=== PATIENT | male | born 1960 | race Caucasian/White ===

== ENCOUNTER 2016-07-22 11:35 | Emergency (ER) | payer BC ==
--- NOTE | 2016-07-22 15:03 | ED ---
Abdominal Pain/Male - HPI Summary HPI Summary: Patient presents for evaluation of lightheadedness with standing and preceding watery diarrhea for the last 3 days. Also has associated dark urine and dry mouth. Both he and had the non bloody, non mucoid diarrhea after arriving home from [place]. They both felt well when arriving home, but soon afterwards began having watery diarrhea. It has nearly resolved today with small, nearly formed stools. Denies new or bad foods, recent antibiotic therapy, chest pain, dyspnea. - History of Current Complaint Chief Complaint: EDDizziness Stated Complaint: HEADACHE/DIZZY/NAUSEA Time Seen by Provider: 07/22/16 14:16 Hx Obtained From: Patient, Family/Voice Network Administrator - Onset/Duration: Gradual Onset, Lasting Days Severity Initially: Mild Severity Currently: Moderate Pain Intensity: 5 - Allergies/Home Medications Allergies/Adverse Reactions: Allergies Allergy/AdvReac Type Severity Reaction Status Date / Time No Known Allergies Allergy Verified 07/22/16 11:39 PMH/Surg Hx/FS Hx/Imm Hx Previously Healthy: Yes Endocrine/Hematology History: Denies: Hx Diabetes Cardiovascular History: Denies: Hx Hypertension, Hx Pacemaker/ICD Respiratory History: Reports: Hx Pneumonia GI History: Reports: Hx Gastroesophageal Reflux Disease History: Denies: Hx Renal Disease Sensory History: Denies: Hx Hearing Aid Neurological History: Reports: Other Neuro Impairments/Disorders - vertigo Psychiatric History: Denies: Hx Panic Disorder - Surgical History Surgery Procedure, Year, and Place: 3 HERNIA -1989,1994, AND 2004. APPENDECTOMY - 1974 Infectious Disease History: No Infectious Disease History: Denies: Traveled Outside the [place] in Last 30 Days - Family History Known Family History: Positive: Cardiac Disease - [place]: father - Social History Alcohol Use: Rare Substance Use Type: Reports: None Hx Tobacco Use: No Smoking Status (MU): Never Smoked Tobacco Review of Systems Negative: Fever, Chills Cardiovascular: Negative Negative: Palpitations, Chest Pain Respiratory: Negative Negative: Shortness Of Breath Positive: Diarrhea. Negative: Abdominal Pain, Vomiting, Nausea All Other Systems Reviewed And Are Negative: Yes Physical Exam Triage Information Reviewed: Yes Vital Signs On Initial Exam: Initial Vitals Temp Pulse Resp BP Pulse Ox 98.8 F 83 16 129/74 98 07/22/16 11:39 07/22/16 11:39 07/22/16 11:39 07/22/16 11:39 07/22/16 11:39 Vital Signs Reviewed: Yes Appearance: Positive: Well-Appearing, No Pain Distress, Well-Nourished Skin: Positive: Warm, Skin Color Reflects Adequate Perfusion, Dry ENT: Positive: Normal ENT inspection, Hearing grossly normal Respiratory/Lung Sounds: Positive: Clear to Auscultation, Breath Sounds Present Cardiovascular: Positive: Normal, RRR, Pulses are Symmetrical in both Upper and Lower Extremities Abdomen Description: Positive: Nontender, No Organomegaly, Soft. Negative: CVA Tenderness (R), CVA Tenderness (L), Distended, Guarding, Hepatomegaly, McBurney' s Point Tenderness, Peritoneal Signs, Pulsatile Mass, Splenomegaly Musculoskeletal: Positive: Normal, Strength/ROM Intact Neurological: Positive: Normal, Sensory/Motor Intact, Alert, Oriented to Person Place, Time, CN Intact II-III, Reflexes Intact, NV Bundle Intact Distally, Normal Gait. Negative: Cerebellar Dysfunction Diagnostics - Vital Signs Vital Signs Temp Pulse Resp BP Pulse Ox 07/22/16 12:50 97.8 F 75 16 131/57 99 07/22/16 11:39 98.8 F 83 16 129/74 98 - Laboratory Result Diagrams: 07/22/16 16:00 07/22/16 16:00 Lab Statement: Any lab studies that have been ordered have been reviewed, and results considered in the medical decision making process. Abdominal Pain Fem Course/Dx - Diagnoses Differential Diagnosis/HQI/PQRI: Other - Primary concern for near syncope from volume depletion. Well appearing, nontoxic with soft benign abdomen with sick contact with identical symptoms. IVF, lab evaluation for renal dysfunction. PCP FU. Provider Diagnoses: Dehydration Discharge - Discharge Plan Condition: Improved Disposition: HOME Patient Education Materials: Dehydration (ED) Referrals: Jc Quigley MD [Primary Care Provider] -
[2016-07-22 16:22] LABS: Hematocrit 42 % (42-52); Hemoglobin 13.8 g/dl (14.0-18.0); Mean Corpuscular HGB Conc 33 g/dl (31-36); Mean Corpuscular Hemoglobin 30 pg (27-31); Mean Corpuscular Volume 90 fL (80-94); Mean Platelet Volume 10 um3 (7.4-10.4); Red Blood Count 4.62 10^6/ul (4.0-5.4); Red Cell Distribution Width 15 % (10.5-15); White Blood Count 6.7 10^3/ul (3.5-10.8)
[2016-07-22 16:33] LABS: Albumin 4.4 g/dL (3.2-5.2); BUN/Creatinine Ratio 16.7 (8-20); Calcium 9.5 mg/dL (8.6-10.3); EGFR African American 132.4 (>60); Globulin 3.2 g/dL (2-4); Potassium 4.1 mmol/L (3.5-5.0); Total Bilirubin 0.4 mg/dL (0.2-1.0); Total Protein 7.6 g/dL (6.4-8.9)
[2016-07-22 17:34] VITALS: BP 112/66
== END 2016-07-22 17:34 | disposition home or self-care (01) ==
LOC: ED 11:35
DX: E86.0 Dehydration (principal); R42 Dizziness and giddiness; R19.7 Diarrhea, unspecified; R51 Headache; R11.0 Nausea
CPT/HCPCS: 36415; 80053; 83690; 85027; 99282

== ENCOUNTER 2016-11-04 11:07 | Emergency (ER) | payer BC ==
[2016-11-04] MEDS ORDERED: Meclizine TAB* 12.5 MG PO ONE (11:57)
[2016-11-04] MEDS ORDERED: NS 0.9% 1000 ML* 1,000 ML IV ONE (11:57)
[2016-11-04 12:32] LABS: Hematocrit 44 % (42-52); Hemoglobin 14.6 g/dl (14.0-18.0); Mean Corpuscular HGB Conc 33 g/dl (31-36); Mean Corpuscular Hemoglobin 30 pg (27-31); Mean Corpuscular Volume 91 fL (80-94); Mean Platelet Volume 10 um3 (7.4-10.4); Red Blood Count 4.91 10^6/ul (4.0-5.4); Red Cell Distribution Width 15 % (10.5-15); White Blood Count 5.5 10^3/ul (3.5-10.8)
[2016-11-04 12:48] LABS: Albumin 4.5 g/dL (3.2-5.2); C Reactive Protein 2.09 mg/L (< 5.00); Calcium 9.9 mg/dL (8.6-10.3); EGFR African American 128.6 (>60); Globulin 3.4 g/dL (2-4); Magnesium 2.2 mg/dL (1.9-2.7); Potassium 4.6 mmol/L (3.5-5.0); Total Bilirubin 0.3 mg/dL (0.2-1.0); Total Protein 7.9 g/dL (6.4-8.9)
[2016-11-04 13:04] VITALS: BP 110/70
[2016-11-04 13:13] LABS: TSH (Thyroid Stimulating Horm) 3.09 mcIU/mL (0.34-5.60)
[2016-11-04 13:41] LABS: Urine Bilirubin Negative (Negative); Urine Glucose Negative (Negative); Urine Nitrite Negative (Negative)
--- NOTE | 2016-11-04 18:28 | ED ---
Cecilio De Los Santos Billy, scribed for Mario Duran MD on 11/04/16 at 1157 . Dizziness - HPI Summary HPI Summary: Patient is a 56 year-old male coming to [facility] for evaluation of dizziness, which he has described as "vertigo" and "roomspinning." Symptoms worse with change in head position. He denies any recent URI symptoms such as cough, sore throat, earache, or rhinorrhea. Denies chest pain or shortness of breath. He states that his symptoms today feel similar to previous episodes of vertigo. - History Of Current Complaint Chief Complaint: EDGeneral Stated Complaint: DIZZY Time Seen by Provider: 11/04/16 11:53 Hx Obtained From: Patient Timing: Constant Severity Initially: Moderate Severity Currently: Moderate Character: Room Spinning Aggravating Factor(s): Change In Head Position Alleviating Factor(s): Rest Associated Signs And Symptoms: Negative: Nausea, Vomiting, Chest Pain, SOB, Fever, Chills - Allergies/Home Medications Allergies/Adverse Reactions: Allergies Allergy/AdvReac Type Severity Reaction Status Date / Time No Known Allergies Allergy Verified 07/22/16 11:39 PMH/Surg Hx/FS Hx/Imm Hx Endocrine/Hematology History: Denies: Hx Diabetes Cardiovascular History: Denies: Hx Hypertension, Hx Pacemaker/ICD Respiratory History: Reports: Hx Pneumonia GI History: Reports: Hx Gastroesophageal Reflux Disease History: Denies: Hx Renal Disease Sensory History: Denies: Hx Hearing Aid EENT History: Reports: Other - vertigo Neurological History: Reports: Other Neuro Impairments/Disorders - vertigo Psychiatric History: Denies: Hx Panic Disorder - Surgical History Surgery Procedure, Year, and Place: 3 HERNIA -1989,1994, AND 2004. APPENDECTOMY - 1974 Infectious Disease History: Denies: Traveled Outside the US in Last 30 Days - Family History Known Family History: Positive: Cardiac Disease - [place]: father, Diabetes - Social History Alcohol Use: Rare Substance Use Type: Reports: None Hx Tobacco Use: No Smoking Status (MU): Never Smoked Tobacco Review of Systems Negative: Sore Throat, Ear Ache, Nasal Discharge Negative: Chest Pain Negative: Shortness Of Breath Neurological: Other - "vertigo" All Other Systems Reviewed And Are Negative: Yes Physical Exam - Summary Physical Exam Summary: VITAL SIGNS: Reviewed. GENERAL: Patient is a well-developed and nourished male who is lying comfortable in the stretcher. Patient is not in any acute respiratory distress. HEAD AND FACE: No signs of trauma. No ecchymosis, hematomas or skull depressions. No sinus tenderness. EYES: PERRLA, EOMI x 2, No injected conjunctiva, no nystagmus. No photophobia. EARS: Hearing grossly intact. Ear canals and tympanic membranes are within normal limits. MOUTH: Oropharynx within normal limits. NECK: Supple, trachea is midline, no adenopathy, no JVD, no carotid bruit, no c- spine tenderness, neck with full ROM. No meningeal signs, no Kernig's or brudzinskis signs. CHEST: Symmetric, no tenderness at palpation LUNGS: Clear to auscultation bilaterally. No wheezing or crackles. CVS: Regular rate and rhythm, S1 and S2 present, no murmurs or gallops appreciated. ABDOMEN: Soft, non-tender. No signs of distention. No rebound no guarding, and no masses palpated. Bowel sounds are normal. EXTREMITIES: FROM in all major joints, no edema, no cyanosis or clubbing. NEURO: Alert and oriented x 3. No acute neurological deficits. Speech is normal and follows commands. SKIN: Dry and warm Triage Information Reviewed: Yes Vital Signs On Initial Exam: Initial Vitals Temp Pulse Resp BP Pulse Ox 98.7 F 68 18 123/78 100 11/04/16 11:12 11/04/16 11:12 11/04/16 11:12 11/04/16 11:12 11/04/16 11:12 Vital Signs Reviewed: Yes Diagnostics - Vital Signs Vital Signs Temp Pulse Resp BP Pulse Ox 11/04/16 11:12 98.7 F 68 18 123/78 100 - Laboratory Lab Results: Lab Results 11/04/16 11/04/16 11/04/16 Range/Units 12:15 12:15 12:15 WBC 5.5 (3.5-10.8) 10^3/ul RBC 4.91 (4.0-5.4) 10^6/ul Hgb 14.6 (14.0-18.0) g/dl Hct 44 (42-52) % MCV 91 (80-94) fL MCH 30 (27-31) pg MCHC 33 (31-36) g/dl RDW 15 (10.5-15) % Plt Count 215 (150-450) 10^3/ul MPV 10 (7.4-10.4) um3 Neut % (Auto) 69.4 (38-83) % Lymph % (Auto) 21.9 L (25-47) % [place] % (Auto) 6.2 (1-9) % Eos % (Auto) 1.4 (0-6) % Baso % (Auto) 1.1 (0-2) % Absolute Neuts (auto) 3.8 (1.5-7.7) 10^3/ul Absolute Lymphs (auto) 1.2 (1.0-4.8) 10^3/ul Absolute Monos (auto) 0.3 (0-0.8) 10^3/ul Absolute Eos (auto) 0.1 (0-0.6) 10^3/ul Absolute Basos (auto) 0.1 (0-0.2) 10^3/ul Absolute Nucleated RBC 0 10^3/ul Nucleated RBC % 0 Sodium 137 (133-145) mmol/L Potassium 4.6 (3.5-5.0) mmol/L Chloride 101 (101-111) mmol/L Carbon Dioxide 31 (22-32) mmol/L Anion Gap 5 (2-11) mmol/L BUN 12 (6-24) mg/dL Creatinine 0.80 (0.67-1.17) mg/dL Est GFR ( Amer) 128.6 (>60) Est GFR (Non-Af Amer) 100.0 (>60) BUN/Creatinine Ratio 15.0 (8-20) Glucose 96 (70-100) mg/dL Lactic Acid 1.6 (0.5-2.0) mmol/L Calcium 9.9 (8.6-10.3) mg/dL Magnesium 2.2 (1.9-2.7) mg/dL Total Bilirubin 0.30 (0.2-1.0) mg/dL AST 19 (13-39) U/L ALT 15 (7-52) U/L Alkaline Phosphatase 70 (34-104) U/L Troponin I 0.00 (<0.04) ng/mL C-Reactive Protein 2.09 (< 5.00) mg/L B-Natriuretic Peptide ( - 100) pg/mL Total Protein 7.9 (6.4-8.9) g/dL Albumin 4.5 (3.2-5.2) g/dL Globulin 3.4 (2-4) g/dL Albumin/Globulin Ratio 1.3 (1-3) TSH 3.09 (0.34-5.60) mcIU/mL Urine Color Urine Appearance Urine pH (5-9) Ur Specific [place] (1.010-1.030) Urine Protein (Negative) Urine Ketones (Negative) Urine Blood (Negative) Urine Nitrate (Negative) Urine Bilirubin (Negative) Urine Urobilinogen (Negative) Ur Leukocyte Esterase (Negative) Urine Glucose (Negative) 11/04/16 11/04/16 Range/Units 12:15 13:10 WBC (3.5-10.8) 10^3/ul RBC (4.0-5.4) 10^6/ul Hgb (14.0-18.0) g/dl Hct (42-52) % MCV (80-94) fL MCH (27-31) pg MCHC (31-36) g/dl RDW (10.5-15) % Plt Count (150-450) 10^3/ul MPV (7.4-10.4) um3 Neut % (Auto) (38-83) % Lymph % (Auto) (25-47) % [place] % (Auto) (1-9) % Eos % (Auto) (0-6) % Baso % (Auto) (0-2) % Absolute Neuts (auto) (1.5-7.7) 10^3/ul Absolute Lymphs (auto) (1.0-4.8) 10^3/ul Absolute Monos (auto) (0-0.8) 10^3/ul Absolute Eos (auto) (0-0.6) 10^3/ul Absolute Basos (auto) (0-0.2) 10^3/ul Absolute Nucleated RBC 10^3/ul Nucleated RBC % Sodium (133-145) mmol/L Potassium (3.5-5.0) mmol/L Chloride (101-111) mmol/L Carbon Dioxide (22-32) mmol/L Anion Gap (2-11) mmol/L BUN (6-24) mg/dL Creatinine (0.67-1.17) mg/dL Est GFR ( Amer) (>60) Est GFR (Non-Af Amer) (>60) BUN/Creatinine Ratio (8-20) Glucose (70-100) mg/dL Lactic Acid (0.5-2.0) mmol/L Calcium (8.6-10.3) mg/dL Magnesium (1.9-2.7) mg/dL Total Bilirubin (0.2-1.0) mg/dL AST (13-39) U/L ALT (7-52) U/L Alkaline Phosphatase (34-104) U/L Troponin I (<0.04) ng/mL C-Reactive Protein (< 5.00) mg/L B-Natriuretic Peptide 17 ( - 100) pg/mL Total Protein (6.4-8.9) g/dL Albumin (3.2-5.2) g/dL Globulin (2-4) g/dL Albumin/Globulin Ratio (1-3) TSH (0.34-5.60) mcIU/mL Urine Color Straw Urine Appearance Clear Urine pH 7.0 (5-9) Ur Specific [place] 1.004 L (1.010-1.030) Urine Protein Negative (Negative) Urine Ketones Negative (Negative) Urine Blood Negative (Negative) Urine Nitrate Negative (Negative) Urine Bilirubin Negative (Negative) Urine Urobilinogen Negative (Negative) Ur Leukocyte Esterase Negative (Negative) Urine Glucose Negative (Negative) Result Diagrams: 11/04/16 12:15 11/04/16 12:15 Lab Statement: Any lab studies that have been ordered have been reviewed, and results considered in the medical decision making process. - EKG 1430 EKG Interpretation: sinus bradycardia 56 bpm, no STEMI Re-Evaluation - Re-Evaluation First Eval Re-Evaluation Time: 14:42 Change: Improved Comment: Patient states that he feels well. All of his symptoms have resolved. Dizzy Course/Dx - Course Assessment/Plan: Patient is a 56 year-old male coming to [facility] for evaluation of dizziness, which he has described as "vertigo" and "roomspinning." Symptoms worse with change in head position. He denies any recent URI symptoms such as cough, sore throat, earache, or rhinorrhea. Denies chest pain or shortness of breath. He states that his symptoms today feel similar to previous episodes of vertigo. Test results WNL. UA is negative. In the ED course, the patient was given IV fluids and Antivert and his symptoms improved. He is ambulating with a good and steady gait. Therefore, I do not see the need of CT imaging of the brain. He will be discharged home to follow up with PCP. He will be given a prescription for Meclizine to be taken at home. I discussed all the findings and test results with the patient. Patient was instructed to return to the emergency room immediately if any of the symptoms return or worsens. Patient understands and agrees. Plan of care was discussed with the patient and patient understands and agrees with the plan of care. All questions were answered at patient satisfaction. There were no further complaints or concerns. Patient is alert and oriented x 3. Patient vital signs are stable. Patient is to follow up with primary care physician in the next 2 to 3 days. Patient understands and agrees. - Diagnoses Differential Diagnosis/HQI/PQRI: Meniere's Disease, Other - BPV, Provider Diagnoses: Vertigo Discharge - Discharge Plan Condition: Stable Disposition: HOME Prescriptions: Meclizine TAB* [Antivert 12.5 TAB*] 25 mg PO TID PRN #30 tab PRN Reason: Vertigo Patient Education Materials: Vertigo (ED) Referrals: Jc Quigley MD [Primary Care Provider] - The documentation as recorded by the Cecilio mackey Billy accurately reflects the service I personally performed and the decisions made by me, Mario Duran MD.
== END 2016-11-04 14:44 | disposition home or self-care (01) ==
LOC: ED 11:07
DX: R42 Dizziness and giddiness (principal)
CPT/HCPCS: 36415; 80053; 81003; 83605; 83735; 83880; 84443; 84484; 85025; 86140; 93005; 99283; A9270-GY

== ENCOUNTER 2017-07-16 10:19 | Emergency (ER) | payer BC ==
[2017-07-16 10:25] VITALS: BP 132/73
--- NOTE | 2017-07-18 08:29 | ED ---
Josef De Los Santos Thomas, scribed for Mario Duran MD on 07/16/17 at 1040 . Influenza-Like Illness - HPI Summary HPI Summary: The patient is a 57 year old male presenting with a cough, sore throat, nasal discharge, fever, body aches, and chills for the last two days. He had diarrhea two days ago. - History of Current Complaint Chief Complaint: EDGeneral Time Seen by Provider: 07/16/17 10:25 Hx Obtained From: Patient Onset/Duration: Still Present Severity: Moderate Associated Signs & Symptoms: Fever, Myalgia, Cough, Sore Throat, Nasal Congestion, Diarrhea Related Hx: Possible Flu/Infectious Exposure - Allergy/Home Medications Allergies/Adverse Reactions: Allergies Allergy/AdvReac Type Severity Reaction Status Date / Time No Known Allergies Allergy Verified 07/22/16 11:39 PMH/Surg Hx/FS Hx/Imm Hx Endocrine/Hematology History: Denies: Hx Diabetes Cardiovascular History: Denies: Hx Hypertension, Hx Pacemaker/ICD Respiratory History: Reports: Hx Pneumonia GI History: Reports: Hx Gastroesophageal Reflux Disease History: Denies: Hx Renal Disease Sensory History: Denies: Hx Hearing Aid Neurological History: Reports: Other Neuro Impairments/Disorders - vertigo Psychiatric History: Denies: Hx Panic Disorder - Surgical History Surgery Procedure, Year, and Place: 3 HERNIA -1989,1994, AND 2004. APPENDECTOMY - 1974 Infectious Disease History: No Infectious Disease History: Denies: Traveled Outside the [place] in Last 30 Days - Family History Known Family History: Positive: Cardiac Disease - [place]: father, Diabetes - Social History Alcohol Use: Rare Substance Use Type: Reports: None Hx Tobacco Use: No Smoking Status (MU): Never Smoked Tobacco Review of Systems Positive: Fever, Chills Positive: Sore Throat, Nasal Discharge Positive: Cough Positive: Myalgia All Other Systems Reviewed And Are Negative: Yes Physical Exam - Summary Physical Exam Summary: VITAL SIGNS: Reviewed. GENERAL: Patient is a well-developed and nourished male who is lying comfortable in the stretcher. Patient is not in any acute respiratory distress. HEAD AND FACE: No signs of trauma. No ecchymosis, hematomas or skull depressions. No sinus tenderness. EYES: PERRLA, EOMI x 2, No injected conjunctiva, no nystagmus. EARS: Hearing grossly intact. Ear canals and tympanic membranes are within normal limits. MOUTH: Oropharynx within normal limits. He has pharyngeal erythema. NOSE: He has nasal discharge. NECK: Supple, trachea is midline, no adenopathy, no JVD, no carotid bruit, no c- spine tenderness, neck with full ROM. CHEST: Symmetric, no tenderness at palpation LUNGS: Clear to auscultation bilaterally. No wheezing or crackles. CVS: Regular rate and rhythm, S1 and S2 present, no murmurs or gallops appreciated. ABDOMEN: Soft, non-tender. No signs of distention. No rebound no guarding, and no masses palpated. Bowel sounds are normal. EXTREMITIES: FROM in all major joints, no edema, no cyanosis or clubbing. NEURO: Alert and oriented x 3. No acute neurological deficits. Speech is normal and follows commands. SKIN: Dry and warm Triage Information Reviewed: Yes Vital Signs On Initial Exam: Initial Vitals Temp Pulse Resp BP Pulse Ox 97.8 F 85 19 132/73 97 07/16/17 10:21 07/16/17 10:21 07/16/17 10:21 07/16/17 10:21 07/16/17 10:21 Vital Signs Reviewed: Yes Diagnostics - Vital Signs Vital Signs Temp Pulse Resp BP Pulse Ox 07/16/17 10:21 97.8 F 85 19 132/73 97 - Laboratory Lab Statement: Any lab studies that have been ordered have been reviewed, and results considered in the medical decision making process. Flu Symptom Course/Dx - Course Assessment/Plan: The patient is a 57 year old male presenting with a cough, sore throat, nasal discharge, fever, body aches, and chills for the last two days. He had diarrhea two days ago. Rapid Strep, Influenza A and B are negative. The patient has a URI, most likely viral. I discharged the patient home with a script for Mucinex and follow up with primary care. - Diagnoses Provider Diagnoses: URI (upper respiratory infection) Discharge - Discharge Plan Condition: Stable Disposition: HOME Prescriptions: guaiFENesin ER TAB [Mucinex*] 600 mg PO BID #10 tab.er Patient Education Materials: Upper Respiratory Infection (ED) Forms: *Work Release Referrals: Jc Quigley MD [Primary Care Provider] - 3 Days Additional Instructions: Follow up with your primary care provider in three days. Return to the emergency department for any new or worsening symptoms. The documentation as recorded by the Josef mackey Thomas accurately reflects the service I personally performed and the decisions made by , Mario Duran MD.
== END 2017-07-16 11:56 | disposition home or self-care (01) ==
LOC: ED 10:19
DX: J06.9 Acute upper respiratory infection, unspecified (principal); K21.9 Gastro-esophageal reflux disease without esophagitis
CPT/HCPCS: 87502; 87651; 99282

== ENCOUNTER 2017-07-19 16:03 | Emergency (ER) | payer BC ==
[2017-07-19] MEDS ORDERED: Azithromycin TAB* 250 MG PO ONE (18:56)
[2017-07-19] MEDS ORDERED: predniSONE TAB* 20 MG PO ONE (18:57)
[2017-07-19] MEDS ORDERED: Benzonatate CAP* 100 MG PO ONE (18:57)
[2017-07-19] MEDS ORDERED: Albuterol HFA INHALER* 8 gm MDI INH ONE (18:58)
--- NOTE | 2017-07-19 19:05 | UC ---
Respiratory Complaint HPI - HPI Summary HPI Summary: 57 yo male ill x 1 week initially f/c URI symptoms see in ER flu (-) now cough in chest he is wheezing has had bronchitis in past an had to use MDI - History of Current Complaint Chief Complaint: UCGeneralIllness Stated Complaint: CHEST CONGESTION Time Seen by Provider: 07/19/17 18:37 Hx Obtained From: Patient Onset/Duration: Gradual Onset, Lasting Days Timing: Constant Severity Initially: Mild Severity Currently: Moderate Pain Intensity: 7 Pain Scale Used: 0-10 Numeric Aggravating Factors: Nothing Alleviating Factors: Nothing Associated Signs And Symptoms: Positive: Fever, Chills, Wheezing, Nasal Congestion, Sinus Discomfort - Allergies/Home Medications Allergies/Adverse Reactions: Allergies Allergy/AdvReac Type Severity Reaction Status Date / Time No Known Allergies Allergy Verified 07/19/17 16:35 PMH/Surg Hx/FS Hx/Imm Hx Previously Healthy: Yes Respiratory History: Bronchitis - Surgical History Surgical History: Yes Surgery Procedure, Year, and Place: 3 HERNIA -1989,1994, AND 2004. APPENDECTOMY - 1974 - Family History Known Family History: Positive: Cardiac Disease - [place]: father, Diabetes - Social History Alcohol Use: Rare Substance Use Type: None Smoking Status (MU): Never Smoked Tobacco Review of Systems Constitutional: Fever, Chills, Fatigue Skin: Negative Eyes: Negative ENT: Nasal Discharge, Sinus Congestion Respiratory: Cough Cardiovascular: Negative Gastrointestinal: Negative Genitourinary: Negative Motor: Negative Neurovascular: Negative Musculoskeletal: Myalgia Neurological: Negative Psychological: Negative Is Patient Immunocompromised?: No All Other Systems Reviewed And Are Negative: Yes Physical Exam Triage Information Reviewed: Yes Appearance: Well-Appearing, No Pain Distress, Well-Nourished Vital Signs: Initial Vital Signs Temp 98.0 F 07/19/17 16:31 Pulse 69 07/19/17 16:31 Resp 16 07/19/17 16:31 BP 118/70 07/19/17 16:31 Pulse Ox 98 07/19/17 16:31 Vital Signs Reviewed: Yes Eyes: Positive: Conjunctiva Clear ENT: Positive: Hearing grossly normal, Nasal congestion, TMs normal, Uvula midline. Negative: Nasal drainage, TM bulging, TM dull, TM red, Tonsillar swelling, Tonsillar exudate, Trismus, Muffled voice, Hoarse voice, Dental tenderness, Sinus tenderness Neck: Positive: Supple, Nontender, No Lymphadenopathy Respiratory: Positive: No respiratory distress, No accessory muscle use, Wheezing Cardiovascular: Positive: RRR, No Murmur. Negative: Tachycardia, Bradycardia Abdomen Description: Positive: Nontender. Negative: CVA Tenderness (R), CVA Tenderness (L), Distended, Guarding Neurological: Positive: Alert Psychological Exam: Normal Skin Exam: Normal UC Diagnostic Evaluation - Laboratory O2 Sat by Pulse Oximetry: 98 - normal/not hypoxic Respiratory Course/Dx - Differential Dx/Diagnosis Provider Diagnoses: acute bronchitis with bronchospasm Discharge - Discharge Plan Condition: Stable Disposition: HOME Prescriptions: Azithromycin TAB* [Zithromax TAB*] 250 mg PO DAILY #4 tab Benzonatate CAP* [Tessalon CAP*] 100 - 200 mg PO TID PRN #28 cap PRN Reason: Cough predniSONE [Deltasone] 40 mg PO DAILY #8 tab Patient Education Materials: Acute Bronchitis (ED), Bronchospasm (ED) Forms: *Work Release Referrals: Jc Quigley MD [Primary Care Provider] - 4 Days (if not better) Additional Instructions: use inhaler as directed to ER for new or worsening symptoms
[2017-07-19 19:26] VITALS: BP 120/70
== END 2017-07-19 19:22 | disposition home or self-care (01) ==
LOC: UCEAST 16:03
DX: J20.9 Acute bronchitis, unspecified (principal)
CPT/HCPCS: 99213; A9270-GY; G0463; J7512

== ENCOUNTER 2017-11-11 10:48 | Emergency (ER) | payer BC ==
[2017-11-11 11:32] LABS: ABS Basophils 0.1 10^3/ul (0-0.2); ABS Eosinophils 0.1 10^3/ul (0-0.6); ABS Lymphocytes 1.2 10^3/ul (1.0-4.8); ABS Monocytes 0.3 10^3/ul (0-0.8); ABS Nucleated RBC 0 10^3/ul; Eosinophil % 1.2 % (0-6); Hematocrit 43 % (42-52); Hemoglobin 14.5 g/dl (14.0-18.0); Lymphocyte % 26.7 % (25-47); Mean Corpuscular HGB Conc 34 g/dl (31-36); Mean Corpuscular Hemoglobin 31 pg (27-31); Mean Corpuscular Volume 92 fL (80-94); Mean Platelet Volume 9.9 um3 (7.4-10.4); Nucleated Red Blood Cells % 0.1; Platelet Count 195 10^3/ul (150-450); Red Blood Count 4.68 10^6/ul (4.0-5.4); Red Cell Distribution Width 15 % (10.5-15); White Blood Count 4.7 10^3/ul (3.5-10.8)
[2017-11-11 11:41] LABS: INR 0.99 (0.77-1.02)
[2017-11-11 11:59] LABS: EGFR Non-African American 96.8 (>60)
--- NOTE | 2017-11-11 12:01 | RAD ---
INDICATION: Chest pain. COMPARISON: Comparison is made with a prior study from March 03, 2013. TECHNIQUE: A portable view of the chest was obtained. FINDINGS: Cardiac and mediastinal contours appear to be within normal limits. The lungs are clear. No pleural effusion is seen. IMPRESSION: NO EVIDENCE FOR ACUTE DISEASE.
[2017-11-11] MEDS ORDERED: Ketorolac INJ* 30 MG/ML 1 ML VIAL IV PUSH ONE (13:12)
[2017-11-11 15:36] VITALS: BP 122/67
--- NOTE | 2017-11-11 15:50 | ED ---
Ramsey De Los Santos Angela, scribed for Mario Duran MD on 11/11/17 at 1114 . HPI Chest Pain - HPI Summary HPI Summary: This pt is a 57 y/o male presenting to [facility] c/o intermittent left sided chest pain for the past 1 month, worse today. Pt reports his chest pain come at 30 minutes at a time. He describes his pain as an electrical shock and it is located on the left side of his chest. Pt currently states his chest pain is radiating to his left arm. Denies nausea, vomiting, diaphoresis, lightheadedness , dizziness. Pt is on omeprazole and acyclovir. FHx: father with SD. - History of Current Complaint Chief Complaint: EDChestPainROMI Time Seen by Provider: 11/11/17 11:02 Hx Obtained From: Patient Onset/Duration: Started Weeks Ago, Atraumatic, Still Present Timing: Intermittent, Lasting Weeks Current Severity: Moderate Pain Intensity: 8 Pain Scale Used: 0-10 Numeric Chest Pain Location: Left Anterior Chest Pain Radiates: Yes Chest Pain Radiates To:: Arm - left Character: Other: - electrical shocks Aggravating Factor(s): Nothing Alleviating Factor(s): Spontaneous Resolution Associated Signs and Symptoms: Positive: Chest Pain. Negative: Dizziness, Lightheadedness, Diaphoresis, Nausea, Palpitations, Vomiting - Allergy/Home Medications Allergies/Adverse Reactions: Allergies Allergy/AdvReac Type Severity Reaction Status Date / Time No Known Allergies Allergy Verified 11/11/17 10:58 PMH/Surg Hx/FS Hx/Imm Hx Endocrine/Hematology History: Denies: Hx Diabetes Cardiovascular History: Denies: Hx Hypertension, Hx Pacemaker/ICD Respiratory History: Reports: Hx Pneumonia GI History: Reports: Hx Gastroesophageal Reflux Disease History: Denies: Hx Renal Disease Sensory History: Denies: Hx Hearing Aid Neurological History: Reports: Other Neuro Impairments/Disorders - vertigo Psychiatric History: Denies: Hx Panic Disorder - Surgical History Surgery Procedure, Year, and Place: 3 HERNIA -1989,1994, AND 2004. APPENDECTOMY - 1974 - Immunization History Date of Influenza Vaccine: march 2017 Infectious Disease History: No Infectious Disease History: Denies: Traveled Outside the [place] in Last 30 Days - Family History Known Family History: Positive: Cardiac Disease - [place]: father, Diabetes - Social History Alcohol Use: Rare Substance Use Type: Reports: None Hx Tobacco Use: No Smoking Status (MU): Never Smoked Tobacco Review of Systems Negative: Fever, Skin Diaphoresis Positive: Chest Pain Negative: Vomiting, Nausea Neurological: Other - NEG: dizziness, lightheadedness All Other Systems Reviewed And Are Negative: Yes Physical Exam - Summary Physical Exam Summary: VITAL SIGNS: Reviewed. GENERAL: Patient is a well-developed and nourished male who is lying comfortable in the stretcher. Patient is not in any acute respiratory distress. HEAD AND FACE: No signs of trauma. No ecchymosis, hematomas or skull depressions. No sinus tenderness. EYES: PERRLA, EOMI x 2, No injected conjunctiva, no nystagmus. EARS: Hearing grossly intact. Ear canals and tympanic membranes are within normal limits. MOUTH: Oropharynx within normal limits. NECK: Supple, trachea is midline, no adenopathy, no JVD, no carotid bruit, no c- spine tenderness, neck with full ROM. CHEST: Symmetric, no tenderness at palpation LUNGS: Clear to auscultation bilaterally. No wheezing or crackles. CVS: Regular rate and rhythm, S1 and S2 present, no murmurs or gallops appreciated. ABDOMEN: Soft, non-tender. No signs of distention. No rebound no guarding, and no masses palpated. Bowel sounds are normal. EXTREMITIES: FROM in all major joints, no edema, no cyanosis or clubbing. NEURO: Alert and oriented x 3. No acute neurological deficits. Speech is normal and follows commands. SKIN: Dry and warm Triage Information Reviewed: Yes Vital Signs On Initial Exam: Initial Vitals Temp Pulse Resp BP Pulse Ox 97.5 F 69 19 125/75 99 11/11/17 10:55 11/11/17 10:55 11/11/17 10:55 11/11/17 10:55 11/11/17 10:55 Vital Signs Reviewed: Yes Diagnostics - Vital Signs Vital Signs Temp Pulse Resp BP Pulse Ox 11/11/17 10:55 97.5 F 69 19 125/75 99 - Laboratory Lab Results: Lab Results 11/11/17 11/11/17 11/11/17 Range/Units 11:23 11:23 11:23 WBC 4.7 (3.5-10.8) 10^3/ul RBC 4.68 (4.0-5.4) 10^6/ul Hgb 14.5 (14.0-18.0) g/dl Hct 43 (42-52) % MCV 92 (80-94) fL MCH 31 (27-31) pg MCHC 34 (31-36) g/dl RDW 15 (10.5-15) % Plt Count 195 (150-450) 10^3/ul MPV 9.9 (7.4-10.4) um3 Neut % (Auto) 63.6 (38-83) % Lymph % (Auto) 26.7 (25-47) % Marinette % (Auto) 7.3 H (0-7) % Eos % (Auto) 1.2 (0-6) % Baso % (Auto) 1.2 (0-2) % Absolute Neuts (auto) 3.0 (1.5-7.7) 10^3/ul Absolute Lymphs (auto) 1.2 (1.0-4.8) 10^3/ul Absolute Monos (auto) 0.3 (0-0.8) 10^3/ul Absolute Eos (auto) 0.1 (0-0.6) 10^3/ul Absolute Basos (auto) 0.1 (0-0.2) 10^3/ul Absolute Nucleated RBC 0 10^3/ul Nucleated RBC % 0.1 INR (Anticoag Therapy) 0.99 (0.77-1.02) APTT 27.4 (26.0-36.3) seconds Sodium 138 L (139-145) mmol/L Potassium 4.0 (3.5-5.0) mmol/L Chloride 104 (101-111) mmol/L Carbon Dioxide 28 (22-32) mmol/L Anion Gap 6 (2-11) mmol/L BUN 11 (6-24) mg/dL Creatinine 0.82 (0.67-1.17) mg/dL Est GFR ( Amer) 124.5 (>60) Est GFR (Non-Af Amer) 96.8 (>60) BUN/Creatinine Ratio 13.4 (8-20) Glucose 107 H (70-100) mg/dL Lactic Acid (0.5-2.0) mmol/L Calcium 9.5 (8.6-10.3) mg/dL Magnesium 2.1 (1.9-2.7) mg/dL Total Bilirubin 0.40 (0.2-1.0) mg/dL AST 22 (13-39) U/L ALT 20 (7-52) U/L Alkaline Phosphatase 81 (34-104) U/L Total Creatine Kinase 93 (10-223) U/L CK-MB (CK-2) 1.5 (0.6-6.3) ng/mL Troponin I 0.00 (<0.04) ng/mL B-Natriuretic Peptide ( - 100) pg/mL Total Protein 7.6 (6.4-8.9) g/dL Albumin 4.3 (3.2-5.2) g/dL Globulin 3.3 (2-4) g/dL Albumin/Globulin Ratio 1.3 (1-3) TSH 2.17 (0.34-5.60) mcIU/mL 11/11/17 11/11/17 11/11/17 Range/Units 11:23 11:23 14:38 WBC (3.5-10.8) 10^3/ul RBC (4.0-5.4) 10^6/ul Hgb (14.0-18.0) g/dl Hct (42-52) % MCV (80-94) fL MCH (27-31) pg MCHC (31-36) g/dl RDW (10.5-15) % Plt Count (150-450) 10^3/ul MPV (7.4-10.4) um3 Neut % (Auto) (38-83) % Lymph % (Auto) (25-47) % Marinette % (Auto) (0-7) % Eos % (Auto) (0-6) % Baso % (Auto) (0-2) % Absolute Neuts (auto) (1.5-7.7) 10^3/ul Absolute Lymphs (auto) (1.0-4.8) 10^3/ul Absolute Monos (auto) (0-0.8) 10^3/ul Absolute Eos (auto) (0-0.6) 10^3/ul Absolute Basos (auto) (0-0.2) 10^3/ul Absolute Nucleated RBC 10^3/ul Nucleated RBC % INR (Anticoag Therapy) (0.77-1.02) APTT (26.0-36.3) seconds Sodium (139-145) mmol/L Potassium (3.5-5.0) mmol/L Chloride (101-111) mmol/L Carbon Dioxide (22-32) mmol/L Anion Gap (2-11) mmol/L BUN (6-24) mg/dL Creatinine (0.67-1.17) mg/dL Est GFR ( Amer) (>60) Est GFR (Non-Af Amer) (>60) BUN/Creatinine Ratio (8-20) Glucose (70-100) mg/dL Lactic Acid 1.8 (0.5-2.0) mmol/L Calcium (8.6-10.3) mg/dL Magnesium (1.9-2.7) mg/dL Total Bilirubin (0.2-1.0) mg/dL AST (13-39) U/L ALT (7-52) U/L Alkaline Phosphatase (34-104) U/L Total Creatine Kinase (10-223) U/L CK-MB (CK-2) (0.6-6.3) ng/mL Troponin I 0.00 (<0.04) ng/mL B-Natriuretic Peptide 9 ( - 100) pg/mL Total Protein (6.4-8.9) g/dL Albumin (3.2-5.2) g/dL Globulin (2-4) g/dL Albumin/Globulin Ratio (1-3) TSH (0.34-5.60) mcIU/mL Result Diagrams: 18 11:23 11/11/17 11:23 Lab Statement: Any lab studies that have been ordered have been reviewed, and results considered in the medical decision making process. - Radiology Chest XR Xray Interpretation: No Acute Changes - IMPRESSION: No evidence for acute disease. Dr. Duran has reviewed this radiology report. Radiology Interpretation Completed By: Radiologist - EKG 11:07 Cardiac Rate: NL - at 85 bpm EKG Rhythm: Sinus Rhythm EKG Interpretation: No ST elevations. Q waves in III and aVF. Normal axis. Re-Evaluation - Re-Evaluation First Eval Re-Evaluation Time: 15:11 Comment: I reviewed the lab and imaging results with the pt. He will be discharged home. Chest Pain Course/Dx - Course Assessment/Plan: Pt is a 57 y/o male who presents with intermittent left sided chest pain for the past 1 month, worse today. Pt reports his chest pain come at 30 minutes at a time. He describes his pain as an electrical shock and it is located on the left side of his chest. Pt currently states his chest pain is radiating to his left arm. Denies nausea, vomiting, diaphoresis, lightheadedness , dizziness. Test results without any significant abnormalities. Two troponins , 4 hours apart, are both negative. Chest XR shows no evidence for acute disease. EKG is normal sinus rhythm with no ST elevations. The pt was given Toradol for the pain and his symptoms improved. Pt has no comorbidities therefore I have low suspicion for acute coronary syndrome and no suspicion for PE since the pt is not hypoxic or tachycardic. Pt will be discharged home with follow up from his PCP in the next few days. I discussed all the findings and test results with the patient. All questions were answered to patient satisfaction. There were no further complaints or concerns. He is instructed to return to the ED for any worsening or new symptoms. Pt is hemodynamically stable, alert and oriented x3. - Chest Pain Differential Diagnosis/HQI/PQRI: Acute SD, ACS, Angina, CHF, Chest Wall, GI Disease, Lower Respiratory Infection - Diagnoses Provider Diagnoses: Atypical chest pain Discharge - Sign-Out/Discharge Documenting (check all that apply): Discharge/Admit/Transfer - Discharge - Discharge Plan Condition: Stable Disposition: HOME Patient Education Materials: Chest Pain (ED) Referrals: Jc Quigley MD [Primary Care Provider] - Additional Instructions: Please follow up with your primary care provider. RETURN TO THE ED FOR ANY NEW OR WORSENING SYMPTOMS. - Billing Disposition and Condition Condition: STABLE Disposition: Home The documentation as recorded by the Ramsey mackey Angela accurately reflects the service I personally performed and the decisions made by me, Mario Duran MD.
== END 2017-11-11 15:35 | disposition home or self-care (01) ==
LOC: ED 10:48
DX: R07.89 Other chest pain (principal); K21.9 Gastro-esophageal reflux disease without esophagitis; Z90.89 Acquired absence of other organs; Z82.49 Family history of ischemic heart disease and other diseases of the circulatory system; Z83.3 Family history of diabetes mellitus
CPT/HCPCS: 36415; 71045; 80053; 82550; 82553; 83605; 83735; 83880; 84443; 84484; 85025; 85610; 85730; 93005; 96374; 99283; J1885

== ENCOUNTER 2017-12-29 12:56 | Emergency (ER) | payer BC ==
--- NOTE | 2017-12-29 13:12 | ED ---
HPI Chest Pain - HPI Summary HPI Summary: [facility] for attending Charles Zamora [facility] for attending Charles Elizondo MD. Pt is a 57 y/o M c/o intermittent chest pain with palpitations onsetting ~1 month ago and worsening yesterday resulting in presenting to the ED. Pt describes pain as tightness starting in chest and L arm. Assoc Sx: chest pressure. Denies: cough. PMHx: Hyperlipidemia, CAD. - History of Current Complaint Chief Complaint: EDChestPainROMI Time Seen by Provider: 12/29/17 13:08 Hx Obtained From: Patient, Family/Senior Analyst Programmer Onset/Duration: Started Weeks Ago, Resolved, Worse Since - Yesterday Timing: Intermittent, Lasting Minutes - ~35 mins Initial Severity: Severe Current Severity: None Pain Intensity: 7 Pain Scale Used: 0-10 Numeric Chest Pain Location: Discrete at: - central chest Chest Pain Radiates To:: Arm - L arm Character: Pressure/Squeezing, Tightness Aggravating Factor(s): Deep Breaths Alleviating Factor(s): Medication Associated Signs and Symptoms: Positive: Chest Pain, Other: - palpitations. Negative: Cough - Allergy/Home Medications Allergies/Adverse Reactions: Allergies Allergy/AdvReac Type Severity Reaction Status Date / Time No Known Allergies Allergy Verified 11/11/17 10:58 Home Medications: Home Medications Acyclovir* [Zovirax 400 MG TAB*] 400 mg PO BID 12/29/17 [History Confirmed 12/29] Naproxen TAB* [Naprosyn 375 mg TAB*] 500 mg PO BID 12/29/17 [History Confirmed 12/29/17] Omeprazole CAP* [Prilosec CAP* 20 MG] 20 mg PO DAILY 12/29/17 [History Confirmed 12/29/17] PMH/Surg Hx/FS Hx/Imm Hx Endocrine/Hematology History: Denies: Hx Diabetes Cardiovascular History: Denies: Hx Hypertension, Hx Pacemaker/ICD Respiratory History: Reports: Hx Pneumonia GI History: Reports: Hx Gastroesophageal Reflux Disease History: Denies: Hx Renal Disease Sensory History: Denies: Hx Hearing Aid Neurological History: Reports: Other Neuro Impairments/Disorders - vertigo Psychiatric History: Denies: Hx Panic Disorder - Surgical History Surgery Procedure, Year, and Place: 3 HERNIA -1989,1994, AND 2004. APPENDECTOMY - 1974 - Immunization History Date of Influenza Vaccine: march 2017 Infectious Disease History: No Infectious Disease History: Denies: Traveled Outside the [place] in Last 30 Days - Family History Known Family History: Positive: Cardiac Disease - [place]: father, Diabetes - Social History Occupation: Employed Full-time Lives: With Family Alcohol Use: Rare Substance Use Type: Reports: None Hx Tobacco Use: No Smoking Status (MU): Never Smoked Tobacco Review of Systems Negative: Fever Positive: Palpitations, Chest Pain Negative: Cough All Other Systems Reviewed And Are Negative: Yes Physical Exam - Summary Physical Exam Summary: Constitutional: Well-developed, Well-nourished, Alert. (-) Distressed Skin: Warm, Dry HENT: Normocephalic; Atraumatic Eyes: Conjunctiva normal Neck: Musculoskeletal ROM normal neck. (-) JVD, (-) Stridor, (-) Tracheal deviation Cardio: Rhythm regular, rate normal, Heart sounds normal; Intact distal pulses; The pedal pulses are 2+ and symmetric. Radial pulses are 2+ and symmetric. (-) Murmur Pulmonary/Chest wall: Effort normal. (-) Respiratory distress, (-) Wheezes, (-) Rales, L sided costochondral tenderness: diff from pain he presented with. Abd: Soft, (-), epigastric tenderness, (-) Distension, (-) Guarding, (-) Rebound Musculoskeletal: (-) Edema Lymph: (-) Cervical adenopathy Neuro: Alert, Oriented x3 Psych: Mood and affect Normal Triage Information Reviewed: Yes Vital Signs On Initial Exam: Initial Vitals Temp Pulse Resp BP Pulse Ox 97.9 F 66 16 134/73 99 12/29/17 13:00 12/29/17 13:00 12/29/17 13:00 12/29/17 13:00 12/29/17 13:00 Vital Signs Reviewed: Yes Diagnostics - Vital Signs Vital Signs Temp Pulse Resp BP Pulse Ox 12/29/17 13:00 97.9 F 66 16 134/73 99 - Laboratory Result Diagrams: 12/29/17 13:35 12/29/17 13:35 Lab Statement: Any lab studies that have been ordered have been reviewed, and results considered in the medical decision making process. - Radiology CXR Xray Interpretation: No Acute Changes - IMPRESSION: NO ACTIVE DISEASE. Radiology Interpretation Completed By: Radiologist - Report has been reviewed by provider. - EKG 1315 Cardiac Rate: NL - 80 bpm EKG Rhythm: Sinus Rhythm ST Segment: Normal 1327 Cardiac Rate: NL - 73 bpm EKG Rhythm: Sinus Rhythm ST Segment: Normal Chest Pain Course/Dx - Course Course Of Treatment: EKG done during extreme CP - nml. Assessment/Plan: Pt will be D/C following evaluation from [facility] Control [facility]. He believes pain to be non cardiac CP - Diagnoses Provider Diagnoses: Chest pain, unspecified - Provider Notifications Discussed Care Of Patient With: Ramos Medina Time Discussed With Above Provider: 15:55 Instructed by Provider To: MD Will See In ED - Recommends D/C, believes to be non cardiac CP. 16:33 - Adam - Did not feel cardiac cath was worth the risk. Discharge - Sign-Out/Discharge Documenting (check all that apply): Patient Departure - Discharge Plan Condition: Stable Disposition: HOME Patient Education Materials: Chest Pain (ED) Referrals: Jc Quigley MD [Primary Care Provider] - Additional Instructions: RETURN TO THE EMERGENCY DEPARTMENT FOR CHANGING OR WORSENING SYMPTOMS - Billing Disposition and Condition Condition: STABLE Disposition: Home
[2017-12-29] MEDS ORDERED: Aspirin 81 mg CHEW TAB* 81 MG TAB.CHEW PO ONE (13:23)
--- NOTE | 2017-12-29 13:46 | RAD ---
INDICATION: Chest pain COMPARISON: November 11, 2017 TECHNIQUE: An AP portable view obtained at 1335 hours is submitted. FINDINGS: Bones/Soft Tissues: There are no acute bony findings. Cardiomediastinal: The cardiomediastinal silhouette is normal. Lungs: There are no infiltrates. Pleura: There are no pleural effusions. Other: None IMPRESSION: NO ACTIVE DISEASE.
[2017-12-29 13:49] LABS: ABS Basophils 0.1 10^3/ul (0-0.2); ABS Eosinophils 0 10^3/ul (0-0.6); ABS Lymphocytes 1.1 10^3/ul (1.0-4.8); ABS Monocytes 0.3 10^3/ul (0-0.8); ABS Neutrophils 2.8 10^3/ul (1.5-7.7); ABS Nucleated RBC 0 10^3/ul; Eosinophil % 1.1 % (0-6); Hematocrit 41 % (42-52); Hemoglobin 13.9 g/dl (14.0-18.0); Lymphocyte % 24.9 % (25-47); Mean Corpuscular HGB Conc 34 g/dl (31-36); Mean Corpuscular Hemoglobin 31 pg (27-31); Mean Corpuscular Volume 92 fL (80-94); Mean Platelet Volume 9.8 um3 (7.4-10.4); Nucleated Red Blood Cells % 0.1; Platelet Count 183 10^3/ul (150-450); Red Blood Count 4.48 10^6/ul (4.00-5.40); Red Cell Distribution Width 14 % (10.5-15); White Blood Count 4.3 10^3/ul (3.5-10.8)
[2017-12-29 14:09] LABS: EGFR Non-African American 98.2 (>60)
[2017-12-29] MEDS ORDERED: Nitroglycerin TAB 0.4 MG* 0.4 MG TAB SL ONE (15:50)
[2017-12-29 16:49] VITALS: BP 107/68
--- NOTE | 2017-12-29 18:20 | CONS ---
CC: Dr. Jc Quigley * CARDIOLOGY CONSULTATION: DATE OF CONSULT: 12/29/17 - EMERGENCY DEPT INDICATION FOR CONSULTATION: Chest pain. HISTORY OF PRESENT ILLNESS: The patient is a 57-year-old gentleman who comes to the emergency room because of chest pain. The patient had episodes of chest pain starting in November. At that time, he was seen in the emergency room. In the emergency room, he ruled for myocardial infarction. His EKG was unremarkable. Since then, he has undergone an exercise stress test with Dr. Babin. At that time, he exercised vigorously. He had no EKG changes. He had mild chest pain at peak exercise. Last week, the patient underwent a second stress test at the request of Dr. Quigley. At that time, he had an exercise nuclear stress test with Dr. Castro. He exercised for little over 7 minutes. He had no EKG changes. He had mild chest pain at the peak of exercise. His nuclear images demonstrate a normal perfusion throughout the myocardium. In speaking with the patient, he says that his pain can come at any time, most of the time it occurs at rest. It is not exacerbated by exercise. The patient states it is sort of aching sensation on the left side of his chest, sometimes going into his shoulder. He does not get any diaphoresis. He does not get any shortness of breath. It does not radiate anywhere else. It does not radiate into his shoulder or to the epigastric area. The patient states he is able to work, but is aware of the discomfort. The patient states that his pain has been getting slightly more frequent over the last 2 weeks. The patient was seen by Dr. Quigley. Dr. Quigley did prescribe Naprosyn to the patient; however, the patient has not taken any of those medications. PAST MEDICAL HISTORY: Significant for hypertension, palpations. OUTPATIENT MEDICATIONS: 1. Acyclovir 400 mg b.i.d. 2. Naprosyn 375 mg b.i.d. 3. Omeprazole 20 mg a day. ALLERGIES: No known drug allergies. FAMILY HISTORY: The patient's father has a history of coronary artery disease. He had stents in his 80s to his coronary arteries. His mother of natural causes. SOCIAL HISTORY: He is . He denies tobacco use. Rare alcohol intake. He works at night as a audiovisual tech. PHYSICAL EXAM: Height is 5 feet 5 inches, weight is 165 pounds. Temperature is normal, heart rate is 64, blood pressure 110/72, respiratory rate is 13, oxygen saturation 97% on room air. Sclerae anicteric. Oropharynx is pink without erythema. Neck: Carotids are 2+ without bruits. JVD is normal. Thyroid is normal. Cardiac Exam: S1, S2 without any murmurs, rubs, or gallops. Lungs are clear to auscultation bilaterally. There is no dullness to percussion. Abdomen is soft, nontender, nondistended with normoactive bowel sounds. Extremities show no edema. He has 2+ pulses throughout. The patient is awake, alert, and oriented. He moves all 4 extremities equally. DIAGNOSTIC STUDIES/LAB DATA: The patient's EKG today demonstrates normal sinus rhythm with normal axis and intervals. Compared to his EKG in October 2016, there are no changes and also compared to his EKG in November 2017, there are no significant changes. CBC within normal limits. Chemistry is within normal limits. Troponin levels were negative today and they were negative at his admission in November. IMPRESSION AND PLAN: This is a 57-year-old gentleman with a very little past medical history, who comes in to the hospital because of chest pain. As described above, he gets this chest pain mostly at rest, it is not exacerbated by exertion. He has undergone both regular treadmill test and an exercise nuclear stress test, both of which failed to show any abnormality. For now, I think his chest pain is noncardiac. I do not think any other testing is necessary. The patient will start taking his Naprosyn twice a day as directed. He will follow up with Dr. Quigley. I will see the patient in follow up in 3 to 4 weeks. [id number]/[facility] #: [id number] [facility]
== END 2017-12-29 16:54 | disposition home or self-care (01) ==
LOC: ED 12:56
DX: R07.89 Other chest pain (principal); R00.2 Palpitations; K21.9 Gastro-esophageal reflux disease without esophagitis; Z82.49 Family history of ischemic heart disease and other diseases of the circulatory system; Z83.3 Family history of diabetes mellitus
CPT/HCPCS: 36415; 71045; 80053; 83605; 84484; 85025; 86140; 93005; 99283; A9270-GY

== ENCOUNTER 2018-06-06 11:42 | Emergency (ER) | payer BC ==
[2018-06-06] MEDS: Pseudoephedrine TAB* 60 MG PO ONE (13:21)
[2018-06-06] MEDS: Acetaminophen TAB* 325 MG PO ONE (13:21)
[2018-06-06 14:19] VITALS: BP 131/85
--- NOTE | 2018-06-06 14:43 | ED ---
Throat Pain/Nasal Congestion - HPI Summary HPI Summary: patient is a 57-year-old male who is otherwise healthy presenting to the ED with sore throat and head cold with mild cough 1 week. He endorses sick contacts. He did not receive the flu shot this year. He denies any body aches. Denies any fevers, sweats however has been having intermittent chills of the past 2 days. Denies any dysphagia or odynophagia, sinus pressure or ear pressure tinnitus. He does endorse rhinorrhea. Denies any SOB or CP. - History of Current Complaint Chief Complaint: EDUpperRespComplaint Time Seen by Provider: 06/06/18 12:19 Hx Obtained From: Patient Onset/Duration: Sudden Onset Severity: Moderate Associated Signs And Symptoms: Positive: Negative - Epiglottits Risk Factors Epiglottis Risk Factors: Negative - Allergies/Home Medications Allergies/Adverse Reactions: Allergies Allergy/AdvReac Type Severity Reaction Status Date / Time No Known Allergies Allergy Verified 06/06/18 11:45 PMH/Surg Hx/FS Hx/Imm Hx Previously Healthy: Yes Endocrine/Hematology History: Denies: Hx Diabetes Cardiovascular History: Denies: Hx Hypertension, Hx Pacemaker/ICD Respiratory History: Reports: Hx Pneumonia GI History: Reports: Hx Gastroesophageal Reflux Disease History: Denies: Hx Renal Disease Sensory History: Denies: Hx Hearing Aid Neurological History: Reports: Other Neuro Impairments/Disorders - vertigo Psychiatric History: Denies: Hx Panic Disorder - Surgical History Surgery Procedure, Year, and Place: 3 HERNIA -1989,1994, AND 2004. APPENDECTOMY - 1974 - Immunization History Date of Influenza Vaccine: march 2017 Hx Pertussis Vaccination: No Immunizations Up to Date: Yes Infectious Disease History: No Infectious Disease History: Denies: Traveled Outside the [place] in Last 30 Days - Family History Known Family History: Positive: Cardiac Disease - OR: father, Diabetes - Social History Occupation: Employed Full-time Lives: With Family Alcohol Use: Rare Hx Substance Use: No Substance Use Type: Reports: None Hx Tobacco Use: No Smoking Status (MU): Never Smoked Tobacco Review of Systems Constitutional: Negative Negative: Fever, Chills, Fatigue, Skin Diaphoresis Negative: Blurred Vision, Erythema Positive: Sore Throat, Nasal Discharge. Negative: Ear Ache Negative: Palpitations, Chest Pain Negative: Shortness Of Breath, Cough Genitourinary: Negative Positive: no symptoms reported, see HPI Negative: Arthralgia, Myalgia Skin: Negative Neurological: Negative All Other Systems Reviewed And Are Negative: Yes Physical Exam Triage Information Reviewed: Yes Vital Signs On Initial Exam: Initial Vitals Temp Pulse Resp BP Pulse Ox 98 F 82 14 129/78 97 06/06/18 11:45 06/06/18 11:45 06/06/18 11:45 06/06/18 11:45 06/06/18 11:45 Vital Signs Reviewed: Yes Appearance: Positive: Well-Appearing, Well-Nourished Skin: Positive: Warm, Skin Color Reflects Adequate Perfusion Head/Face: Positive: Normal Head/Face Inspection Eyes: Positive: EOMI, BRY, Conjunctiva Clear ENT: Positive: Pharynx normal Neck: Positive: Supple, No Lymphadenopathy Respiratory/Lung Sounds: Positive: Clear to Auscultation, Breath Sounds Present Cardiovascular: Positive: RRR, Pulses are Symmetrical in both Upper and Lower Extremities Musculoskeletal: Positive: Normal, Strength/ROM Intact Neurological: Positive: Alert, Oriented to Person Place, Time, Speech Normal Psychiatric: Positive: Normal, Affect/Mood Appropriate AVPU Assessment: Alert Diagnostics - Vital Signs Vital Signs Temp Pulse Resp BP Pulse Ox 06/06/18 14:18 98 F 73 16 131/85 98 06/06/18 11:45 98 F 82 14 129/78 97 - Laboratory Lab Results: Lab Results 06/06/18 Range/Units 13:24 Group A Strep Rapid Negative (Negative) Lab Statement: Any lab studies that have been ordered have been reviewed, and results considered in the medical decision making process. EENT Course/Dx - Course Course Of Treatment: 2 days left on not given my is drooping walking working patient is evaluated for sore throat, head cold and cough. Strep negative. Chest x-ray shows no active acute cardiopulmonary disease. Lungs CTA. RRR. No axillary sinus or frontal sinus pressure. TMs without erythema, positive cone of light. No conjunctival injection. He is encouraged Sudafed and Tylenol. He is okay with plan discharge. Hendersons return precautions. - Diagnoses Provider Diagnoses: Sinus congestion Discharge - Sign-Out/Discharge Documenting (check all that apply): Patient Departure - Discharge Plan Condition: Stable Disposition: HOME Prescriptions: Pseudoephedrine HCL ER TAB* [Sudafed 12 Hour*] 120 mg PO BID #12 tab.er Referrals: Jc Quigley MD [Primary Care Provider] - Additional Instructions: Sudafed twice daily for nasal congestion If you develop worsening symptoms - return to the ED Tylenol 650mg three times daily for headache Cepacol or chloraseptic tabs for sore throat - Billing Disposition and Condition Condition: STABLE Disposition: Home
== END 2018-06-06 14:18 | disposition home or self-care (01) ==
LOC: ED 11:42
DX: R09.81 Nasal congestion (principal); K21.9 Gastro-esophageal reflux disease without esophagitis
CPT/HCPCS: 71046; 87651; 99282; A9270-GY

== ENCOUNTER 2018-08-16 10:56 | Emergency (ER) | payer BC ==
[2018-08-16 12:26] LABS: Influenza A Molecular NEGATIVE (Negative); Influenza B Molecular NEGATIVE (Negative)
[2018-08-16] MEDS ORDERED: Ondansetron ODT TAB* 4 MG PO ONE (13:59)
[2018-08-16 15:00] LABS: Hematocrit 40 % (42-52); Hemoglobin 13.1 g/dl (14.0-18.0); Mean Corpuscular HGB Conc 33 g/dl (31-36); Mean Corpuscular Hemoglobin 30 pg (27-31); Mean Corpuscular Volume 91 fL (80-94); Mean Platelet Volume 10.1 fL (7.4-10.4); Platelet Count 183 10^3/ul (150-450); Red Blood Count 4.38 10^6/ul (4.00-5.40); Red Cell Distribution Width 15 % (10.5-15)
[2018-08-16 15:13] LABS: ALT 14 U/L (7-52); AST 14 U/L (13-39); Albumin/Globulin Ratio 1.4 (1-3); Alkaline Phosphatase 65 U/L (34-104); Anion Gap 5 mmol/L (2-11); BUN/Creatinine Ratio 19.7 (8-20); Blood Urea Nitrogen 15 mg/dL (6-24); CO2 Carbon Dioxide 28 mmol/L (22-32); Calcium 8.8 mg/dL (8.6-10.3); Chloride 105 mmol/L (101-111); EGFR African American 127.5 (>60); EGFR Non-African American 105.3 (>60); Globulin 2.9 g/dL (2-4); Glucose 108 mg/dL (70-100); Potassium 3.8 mmol/L (3.5-5.0); Sodium 138 mmol/L (135-145); Total Protein 6.9 g/dL (6.4-8.9)
[2018-08-16 15:14] LABS: ABS Basophils 0 10^3/ul (0-0.2); ABS Eosinophils 0.1 10^3/ul (0-0.6); ABS Lymphocytes 1.4 10^3/ul (1.0-4.8); ABS Monocytes 0.3 10^3/ul (0-0.8); ABS Neutrophils 4.4 10^3/ul (1.5-7.7); ABS Nucleated RBC 0 10^3/ul; Eosinophil % 0.9 %; Lymphocyte % 21.9 %; Nucleated Red Blood Cells % 0
[2018-08-16 15:42] VITALS: BP 112/54
--- NOTE | 2018-08-16 17:00 | ED ---
Nausea/Vomiting/Diarrhea HPI - HPI Summary HPI Summary: Patient is a 58-year-old male who presents emergency department for vomiting and diarrhea. Patient states that yesterday he started acutely with nausea and vomiting and today started with diarrhea. Denies abdominal pain. Denies passing blood. Denies chest pain, shortness of breath, fever, urinary symptoms. Patient states he feels a bit woozy and feels dehydrated. He denies recent travels, antibiotic use, hospitalization, sick contacts. Symptoms are moderate in severity. No current modifying factors. - History of Current Complaint Chief Complaint: EDFluSymptoms Stated Complaint: "I MAY HAVE THE FLU" PER PT Time Seen by Provider: 08/16/18 13:29 Hx Obtained From: Patient Pain Intensity: 0 Pain Scale Used: 0-10 Numeric - Allergies/Home Medications Allergies/Adverse Reactions: Allergies Allergy/AdvReac Type Severity Reaction Status Date / Time No Known Allergies Allergy Verified 06/06/18 11:45 PMH/Surg Hx/FS Hx/Imm Hx Previously Healthy: Yes Endocrine/Hematology History: Denies: Hx Diabetes Cardiovascular History: Denies: Hx Hypertension, Hx Pacemaker/ICD Respiratory History: Reports: Hx Pneumonia GI History: Reports: Hx Gastroesophageal Reflux Disease History: Denies: Hx Renal Disease Sensory History: Denies: Hx Hearing Aid Neurological History: Reports: Other Neuro Impairments/Disorders - vertigo Psychiatric History: Denies: Hx Panic Disorder - Surgical History Surgery Procedure, Year, and Place: 3 [facility]ERNIA -1989,1994, AND 2004. APPENDECTOMY - 1974 - Immunization History Date of Influenza Vaccine: march 2017 Infectious Disease History: No Infectious Disease History: Denies: Traveled Outside the [place] in Last 30 Days - Family History Known Family History: Positive: Cardiac Disease - ID: father, Diabetes - Social History Occupation: Employed Full-time Lives: With Family Alcohol Use: Rare Hx Substance Use: No Substance Use Type: Reports: None Hx Tobacco Use: No Smoking Status (MU): Never Smoked Tobacco Review of Systems Constitutional: Negative Negative: Fever, Chills Eyes: Negative ENT: Negative Cardiovascular: Negative Negative: Palpitations, Chest Pain Respiratory: Negative Negative: Shortness Of Breath, Cough Positive: Abdominal Pain. Negative: Vomiting, Diarrhea, Nausea Genitourinary: Negative Neurological: Negative All Other Systems Reviewed And Are Negative: Yes Physical Exam Triage Information Reviewed: Yes Vital Signs On Initial Exam: Initial Vitals Temp Pulse Resp BP Pulse Ox 98.1 F 72 18 124/72 97 08/16/18 11:20 08/16/18 11:20 08/16/18 11:20 08/16/18 11:20 08/16/18 11:20 Vital Signs Reviewed: Yes Appearance: Positive: Well-Appearing - Pt. lying in bed in NAD. present. Skin: Positive: Warm, Dry Head/Face: Positive: Normal Head/Face Inspection Eyes: Positive: Normal, EOMI Neck: Positive: Supple Respiratory/Lung Sounds: Positive: Clear to Auscultation, Breath Sounds Present Cardiovascular: Positive: Normal, RRR Abdomen Description: Positive: Other: - Abd. is soft with tenderness to the epigastric region. no pain at mcburney's point. No rebound tenderness or guarding. negative maxwell sign. Neurological: Positive: Normal, CN Intact II-III Psychiatric: Positive: Affect/Mood Appropriate Diagnostics - Vital Signs Vital Signs Temp Pulse Resp BP Pulse Ox 08/16/18 15:41 98.7 F 65 14 112/54 99 08/16/18 11:20 98.1 F 72 18 124/72 97 - Laboratory Lab Results: Lab Results 08/16/18 08/16/18 08/16/18 Range/Units 12:14 14:41 14:41 WBC 6.0 (3.5-10.8) 10^3/ul RBC 4.38 (4.00-5.40) 10^6/ul Hgb 13.1 L (14.0-18.0) g/dl Hct 40 L (42-52) % MCV 91 (80-94) fL MCH 30 (27-31) pg MCHC 33 (31-36) g/dl RDW 15 (10.5-15) % Plt Count 183 (150-450) 10^3/ul MPV 10.1 (7.4-10.4) fL Neut % (Auto) 71.0 % Lymph % (Auto) 21.9 % Stewart % (Auto) 5.5 % Eos % (Auto) 0.9 % Baso % (Auto) 0.7 % Absolute Neuts (auto) 4.4 (1.5-7.7) 10^3/ul Absolute Lymphs (auto) 1.4 (1.0-4.8) 10^3/ul Absolute Monos (auto) 0.3 (0-0.8) 10^3/ul Absolute Eos (auto) 0.1 (0-0.6) 10^3/ul Absolute Basos (auto) 0 (0-0.2) 10^3/ul Absolute Nucleated RBC 0 10^3/ul Nucleated RBC % 0 Sodium 138 (135-145) mmol/L Potassium 3.8 (3.5-5.0) mmol/L Chloride 105 (101-111) mmol/L Carbon Dioxide 28 (22-32) mmol/L Anion Gap 5 (2-11) mmol/L BUN 15 (6-24) mg/dL Creatinine 0.76 (0.67-1.17) mg/dL Est GFR ( Amer) 127.5 (>60) Est GFR (Non-Af Amer) 105.3 (>60) BUN/Creatinine Ratio 19.7 (8-20) Glucose 108 H (70-100) mg/dL Calcium 8.8 (8.6-10.3) mg/dL Magnesium 2.0 (1.9-2.7) mg/dL Total Bilirubin 0.30 (0.2-1.0) mg/dL AST 14 (13-39) U/L ALT 14 (7-52) U/L Alkaline Phosphatase 65 (34-104) U/L Total Protein 6.9 (6.4-8.9) g/dL Albumin 4.0 (3.2-5.2) g/dL Globulin 2.9 (2-4) g/dL Albumin/Globulin Ratio 1.4 (1-3) Lipase < 10 L (11.0-82.0) U/L Influenza A (Rapid) Negative (Negative) Influenza B (Rapid) Negative (Negative) Result Diagrams: 08/16/18 14:41 08/16/18 14:41 Lab Statement: Any lab studies that have been ordered have been reviewed, and results considered in the medical decision making process. Naus/Vom/Diarrhea Course/Dx - Course Course Of Treatment: Patient presenting with vomiting and diarrhea. Patient states that vomiting has subsided today. He is afebrile stable vital signs. He has benign abdominal exam. Patient was given Zofran and Gatorade. Blood work is unremarkable. Patient has had no vomiting in the ER. Suspect viral gastroenteritis. Patient discharged home with a prescription for Zofran. Clinically liquid diet 24 hours. Close follow-up with PCP if symptoms persist. To return to ER for fever, uncontrollable vomiting, worsening abdominal pain. Patient understands and agrees with plan. - Differential Dx/Diagnosis Differential Diagnoses - Male: Appendicitis, Bowel Obstruction, Diverticulitis, Gastroenteritis (Viral), Gastroenteritis (Bacterial) Provider Diagnosis: Gastroenteritis Condition At Discharge: Good Discharge - Sign-Out/Discharge Documenting (check all that apply): Patient Departure Patient Received Moderate/Deep Sedation with Procedure: No - Discharge Plan Condition: Good Disposition: HOME Prescriptions: Ondansetron TAB* [Zofran 4 MG Tab*] 4 mg PO Q6H PRN #12 tab PRN Reason: Nausea Patient Education Materials: Gastroenteritis (ED) Forms: *Work Release Referrals: Jc Quigley MD [Primary Care Provider] - Additional Instructions: Schedule a follow up appointment with PCP Increase fluids and rest Zofran as needed for nausea Return to ER if symptoms change or worsen - Billing Disposition and Condition Condition: GOOD Disposition: Home
== END 2018-08-16 15:41 | disposition home or self-care (01) ==
LOC: ED 10:56
DX: K52.9 Noninfective gastroenteritis and colitis, unspecified (principal); R11.10 Vomiting, unspecified; R19.7 Diarrhea, unspecified; K21.9 Gastro-esophageal reflux disease without esophagitis; R10.9 Unspecified abdominal pain
CPT/HCPCS: 36415; 80053; 83690; 83735; 85025; 99281; A9270-GY